=== PATIENT | female | born 1950 | race Caucasian/White ===

== ENCOUNTER 2019-03-26 08:21 | Inpatient (IN) | payer OTHER, SELFPAY ==
[2019-03-18 12:48] VITALS: BMI 38.7
[2019-03-26] VITALS (13 sets, daily range): BP systolic 119–174; BP diastolic 50–84; PULSE 49–69; RESP 12–18; TEMP 35.8–36.6; O2SAT 96–100; BMI 38.1
--- NOTE | 2019-03-26 06:00 | DI.RAD.S_ITS ---
PROCEDURE: XR KNEE LT 1TO2V INDICATIONS: LEFT TOTAL KNEE TECHNIQUE: 2 view(s) of the knee acquired. COMPARISON: None. FINDINGS: Bones: Patient is status post knee joint arthroplasty. Hardware components are in expected positions. Visualized bony structures are intact. Soft tissues: Overlying postoperative changes are noted. IMPRESSION: Normal alignment after left total knee arthroplasty. Dictated by: Estrada Burks M.D. on 03/26/2019 at 12:55 Approved by: Estrada Burks M.D. on 03/26/2019 at 12:56
--- NOTE | 2019-03-26 08:48 | PM.PREOP ---
Pre-operative Note Interval Note History & Physical reviewed/Exam performed by Physician: Yes Changes to H&P: No
--- NOTE | 2019-03-26 08:49 | PM.OP.1 ---
Operative Date/Time/Diagnoses Date of procedure: 03/26/19 Time of procedure: 11:47 Pre-op diagnosis: Left knee osteoarthritis Post-op diagnosis: same Procedure & Clinicians Procedure: Left total knee arthroplasty Same procedure as scheduled: Yes Indications: The patient presents today for total knee arthroplasty after failure of conservative treatment. The nature of the procedure including the risks and benefits, alternatives, postoperative course and expected outcome were discussed and all questions answered. Consent was obtained. Operative site confirmed and marked. Surgeon: Rolando Lama Surveillance Supervisor: Orville Garcias Anesthesia Type: General, Spinal and Local Operative Notes Findings: Severe osteoarthritis with varus alignment. Closure Type: primary Specimen(s): none sent Prosthetic devices, grafts, tissues, transplants, or devices: [facility] BCS: 5 femoral component, 3 tibial component, 9 mm BCS polyethylene tray and 29 x 7.5 mm round patella Applied: implant(s) Estimated Blood Loss (mL): 75 Blood products transfused: none Tourniquet time (min): 27 Procedure in detail: The patient was taken to the operative suite and placed under general and spinal anesthesia. The patient was given prophylactic antibiotics prior to surgery. The patient was also given tranexamic acid, 1 g, just prior to surgery for postoperative hemostasis. The lateral knee was prepped and the joint injected with 20 mL of 1% Lidocaine with epinephrine. The knee was then prepped and draped in usual sterile fashion. The leg was exsanguinated with an Esmarch dressing and the tourniquet raised to 250 torr. A 15 cm anterior incision was made. Next a medial trivector arthrotomy was made. The extensor mechanism was marked to ensure accurate repair. Initial exposing dissection was carried out medially and laterally. The knee was then extended and the patellar thickness was measured and a cut made removing approximately 7 mm of bone with a goal of restoring normal patellar thickness. The patella was then sized and drilled. Some excess lateral bone was excised and the patellofemoral ligament released. The tourniquet was then released. The knee was then flexed and the [employer] femoral guide was placed. The anterior pins were placed and the distal rotation holes drilled. The distal cutting guide was placed and the templated distal femoral cut was made. The templating cutting block was then placed and the anterior, posterior and chamfer cuts made. The [employer] tibial guide was placed and the alignment checked along the axis of the proximal tibial with a nancy. The proximal tibial cut was then made with an oscillating saw. All meniscus and bony debris was then removed. Flexion extension gaps were checked. No specific balancing was required other than routine exposure and removal of osteophytes. The soft tissues were then injected with a combination of 20 mL of half percent Marcaine with epinephrine and 20 mL of Exparel. The trial components were then placed. The knee went into full extension and flexion beyond 120?. There was excellent medial- lateral balance throughout motion. Patellar tracking was excellent. The trial components were removed and size is confirmed for the final implants. The knee was then exsanguinated with an Esmarch dressing and the tourniquet reapplied for cementing. The knee was cleansed with Pulsavac irrigation and dried. The final components were cemented in with high viscosity vacuum mixed bone cement with antibiotics. The knee was held in extension and the patellar clamp until the cement had adequately cured. The knee was then irrigated with dilute Betadine solution. The extensor mechanism was closed with 5 interrupted #1 Vicryl sutures in 90 degrees of flexion. The joint was then injected with a combination of 1 g of tranexamic acid and 20 mL of quarter percent Marcaine with epinephrine. The subcutaneous tissue was closed with 2-0 Vicryl. The skin was closed with sangita and surgical adhesive. An Aquacel dressing and Kamar wrap were then applied. Complications: none Condition: stable Disposition: PACU Plan for aftercare: [facility] protocol for total knee arthroplasty.
[2019-03-26] MEDS: LACTATED RINGERS 1,000 ML 42 ML IV ×2 (08:51→11:52)
[2019-03-26] MEDS: CEFAZOLIN 2 GM/100 ML FROZ.PIGGY IV ×2 (10:05→17:05)
--- NOTE | 2019-03-26 10:50 | SUR.OPER ---
Supine on padded OR bed. Pillow under head, arms secured on padded armboards <90 degree abduction. Safety belt across torso. Non-operative leg secured with tape over blanket over lower leg. Operative leg secured in DeMayo/Stiven positioner. Foam padded brace at thigh of operative leg.
[2019-03-26] MEDS: BUPIVACAINE 0.25% W/ EPI (PF) 40 ML, BUPIVACAINE LIPOSOME 266 MG, SODIUM CHLORIDE 0.9% ... INJ (10:56)
[2019-03-26] MEDS: LIDOCAINE 1% W/EPI INJ 20 ML INJ (10:56)
[2019-03-26] MEDS: TRANEXAMIC ACID 1,000 MG VIAL 1000 MG INJ ×2 (10:57→10:58)
[2019-03-26] MEDS: BUPIVACAINE 0.25% W/ EPI 30 ML VIAL INJ (11:00)
[2019-03-26] MEDS: POVIDONE-IODINE 15 ML, SODIUM CHLORIDE 0.9% 250 ML TOP (11:01)
[2019-03-26] MEDS: LACTATED RINGERS 1,000 ML 125 ML IV ×2 (13:00→21:56)
[2019-03-26] MEDS: OXYCODONE IR 5 MG TABLET PO (13:59)
[2019-03-26] MEDS: CHLORTHALIDONE 25 MG TABLET PO (14:01)
[2019-03-26] MEDS: ACETAMINOPHEN 325 MG TABLET 975 MG PO ×2 (14:02→20:31)
--- NOTE | 2019-03-26 14:45 | PT.IIE ---
Current Diagnoses Unilateral primary osteoarthritis, left knee (03/26/19) Surgery Performed Operation Date: 03/26/19 10:30 Actual Procedures p Total Knee Arthroplasty(Left) - Rolando Lama MD Surgical History (Last Updated 03/18/19 @ 13:14 by Jesenia Iglesias RN) History of lumbar fusion (Acute ~2014) History of right oophorectomy (Acute) Hx of laparoscopy (Acute) Medical History (Last Updated 03/18/19 @ 13:14 by Jesenia Iglesias RN) Anxiety about health (Acute) Bronchitis (Acute) Fluid retention in legs (Acute) H/O: hysterectomy (Acute) HTN (hypertension) (Acute) Hx of ectopic (Acute) Kidney stones (Acute) PAC (premature atrial contraction) (Acute) Wrist fracture, left (Acute) Physical Therapy Inpatient Evaluation/Re-Eval M1 PT/OT-IP Prior Functional Status Start: 03/26/19 16:52 Freq: NEEDED Status: Active Protocol: Document 03/26/19 14:45 AB (Rec: 03/26/19 17:04 AB [id number]) Medical Review Prior Functional Status Medical History Reviewed Yes Communication able to make needs known Mobility and Gait pt stated that she is independent with all mobilities and ambulation without AD Social History Household Members spouse Living Arrangements House Number of Floors (Floors) Two Floors Number of Stairs To Enter/Railing? pt stays on main level of the house 5 steps to enter with L rail ascending Home Environment High Toilet Walk in Shower Built-In Shower Seat Home Equipment Front Wheel Walker Straight Cane Employment Status Retired M2 PT-IP Current Condition Start: 03/26/19 16:52 Freq: NEEDED Status: Active Protocol: Document 03/26/19 14:45 AB (Rec: 03/26/19 17:04 AB [id number]) Physical Therapy Current Condition Current Condition Evaluation Date 03/26/19 Treatment Diagnosis s/p L TKA; difficulty in walking Onset Date 03/26/19 Weight Bearing Status Weight Bearing Status Weight Bear as Tolerated M3 PT-IP Subjective Start: 03/26/19 16:52 Freq: NEEDED Status: Active Protocol: Document 03/26/19 14:45 AB (Rec: 03/26/19 17:04 AB [id number]) Subjective Physical Therapy Visit Type Type Initial Evaluation Visit Start Time 14:45 Visit Stop Time 15:28 Total Visit Minutes 43 Number of RADIO INTERFERENCE EXPERT Visits 0 Physical Therapy Visit Comments Patient Comments pt requested to use the toilet Patient Goals to go home Therapy Pain Assessment Pain When Pain Assessed At Rest Pain Present Pain Present Pain Reported Location left knee Intensity 4 Scale Used Numeric (1 - 10) Pain Management Techniques Apply Cold Re-positioning Timing of Activity with Medications M4 PT-IP Mobility and Gait Start: 03/26/19 16:52 Freq: NEEDED Status: Active Protocol: Document 03/26/19 14:45 AB (Rec: 03/26/19 17:04 AB [id number]) PT-Bed Mobility Assessment Supine to Sit Supine to Sit Standby Assistance PT-Transfer Assessment Sit to and From Stand Sit to and from Stand Contact Guard Assistance Equipment Transfer Assistive Device Gait Belt Front Wheeled Walker Transfers Transfer Destination Toilet Transfer Technique pt ambulated to the toilet Transfer Ability Level of Assist Minimal Assistance Comments Mobility Comments (+) L knee buckling x2 during ambulation using FWW requiring min A for stability and safety. pt completed sit to stand from EOB CGA and ambulated to the toilet using FWW min A and cues. pt required min A for controlled descent to the toilet. pt was able to maintain standing using FWW for support while completing hygiene care and brief management. pt ambulated out of the toilet to the sink using FWW min A. pt was able to maintain standing using FWW for support CGA while completing handwashing. pt agreed to sit up on chair afterwards. set pt up on chair. ice pack provided. call light and table placed within reach. Gait Assessment Gait Gait Assistance Required: Contact Guard Assist Minimum Assistance Distance (Feet) 12 Able to Maintain Weight Bearing Status Yes During Gait Assistive Devices Assistive Device Gait Belt Front Wheeled Walker Orthotic/Prosthetic Devices or Brace: No Gait Deviations General Gait Pattern Antalgic Decreased Stride Length Decreased Feet Clearance Factors Limiting Gait Function Factors Limiting Gait Function Decreased Activity Tolerance Decreased Strength Limited Range of Motion Pain Poor Balance Poor Safety Awareness Comments Gait Comments pls refer to mobility comments for details PT-Balance Assessment Sitting Balance and Reactions Static Sitting Balance Ability Good Dynamic Sitting Balance Ability Good Standing Balance and Reactions Static Standing Balance Ability Fair Dynamic Standing Balance Ability Fair Device Used FWW M5 PT-IP Objective Assessments Start: 03/26/19 16:52 Freq: NEEDED Status: Active Protocol: Document 03/26/19 14:45 AB (Rec: 03/26/19 17:04 AB [id number]) Orientation Orientation/Cognition Level of Alertness Alert Orientation Name Age Birthday Month Date Year Day of Week Place Situation Safety Awareness Understands Safety Issues Memory Description No Deficits Noted Gross Range of Motion Lower Extremity ROM Assessment Left Impaired Impairments L knee flexion: ~ 50 deg Strength Lower Extremity Strength Assessment Left Impaired Hip 4-/5 Knee 3+/5 Coordination Assessment Gross Coordination Gross Coordination WNL Muscle Tone Muscle Tone WNL Yes M6 PT-IP Treatment Start: 03/26/19 16:52 Freq: NEEDED Status: Active Protocol: Document 03/26/19 14:45 AB (Rec: 03/26/19 17:04 AB [id number]) Physical Therapy Treatment Exercises Exercises Heel Slides Education Education Provided Precautions Weight Bearing Status Post-Op Packet Safety M7 PT-IP Assessment and Plan Start: 03/26/19 16:52 Freq: NEEDED Status: Active Protocol: Document 03/26/19 14:45 AB (Rec: 03/26/19 17:04 [id number]) PT Summary Assessment and Plan Potential Rehabilitation Potential Good Status of Condition at Evaluation Stable Summary Impairments Pain ROM Strength Balance Coordination Sensation Tone Cognition Bed Mobility Transfers Gait Activity Tolerance Assessment Summary pt requiring CGA to min A with mobility and will have her spouse assist her at home. caregiver training will be conducted when appropriate and will also complete stair training prior to d/c. pt stated that she is set up for outpt PT already. Goals Bed Mobility Goal Independent Transfer Goal Independent Front Wheeled Walker Gait Goal Independent Front Wheel Walker Gait Distance 200 Other Goals up/down 5 steps L rail ascending CGA Days to Meet Goals 5 Frequency of Treatment Frequency Of Treatment Twice a Day Treatment Plan Physical Therapy Treatment Plan Bed Mobility Training Transfer Training Gait Training Therapeutic Exercise Balance Retraining Post Op Education Discharge Planning Hot or Cold Pack Neuromuscular Re-ed Coordination Retraining Manual Therapy Recommendations To Nursing Amount of Assist Needed 1 Person Assist Discharge Recommendations PT Discharge Recommendations Home with Assistance Outpatient PT
[2019-03-26] MEDS: HYDROMORPHONE 0.5 MG INJ IV ×2 (15:54→18:34)
[2019-03-26] MEDS: OXYCODONE IR 10 MG TABLET PO ×3 (17:05→22:56)
[2019-03-26] MEDS: METOPROLOL IR 50 MG TABLET PO (20:29)
[2019-03-26] MEDS: ASPIRIN EC 81 MG TABLET PO (20:31)
[2019-03-27] MEDS: CEFAZOLIN 2 GM/100 ML FROZ.PIGGY IV (01:49)
[2019-03-27] MEDS: OXYCODONE IR 10 MG TABLET PO ×2 (01:51→11:47)
[2019-03-27 03:56] VITALS: BP 160/78; PULSE 73; RESP 16; TEMP 36.7; O2SAT 97
[2019-03-27] MEDS: OXYCODONE IR 5 MG TABLET PO ×3 (05:51→08:55)
--- NOTE | 2019-03-27 07:26 | PM.DS.1 ---
History of Present Illness Date Patient Seen: 03/27/19 Time Patient Seen: 07:27 Chief complaint: [id number] Left Total Knee ArthroplastyNEED MCR NUM Narrative: Pain is been to 7/10. Some nausea when she has been up to use the restroom. No vomiting. No fever chills. Patient wishes to go home today if safe to do so. Discharge Providers Date of admission: 03/26/19 08:21 Discharge Date: 03/27/19 Primary care physician: Shayna Taveras PA-C Consults: 03/26/19 12:46 Consult to Discharge Planning Routine Comment: Consult to Physical Therapy Evaluate & Treat Comment: Physician Instructions: postop TKA protocol Consult to Respiratory Therapy Evaluate & Treat Comment: Physician Instructions: Evaluate and treat Discharge provider: Orville Garcias PA-C Summary Discharge Diagnosis: Post left total knee arthroplasty Hospital Course: Indications: The patient presents today for total knee arthroplasty after failure of conservative treatment. The nature of the procedure including the risks and benefits, alternatives, postoperative course and expected outcome were discussed and all questions answered. Consent was obtained. Operative site confirmed and marked. Surgeon: Rolando Lama [place] Hand: Orville Garcias Anesthesia Type: General, Spinal and Local Operative Notes Findings: Severe osteoarthritis with varus alignment. Closure Type: primary Specimen(s): none sent Prosthetic devices, grafts, tissues, transplants, or devices: [employer] BCS: 5 femoral component, 3 tibial component, 9 mm BCS polyethylene tray and 29 x 7.5 mm round patella Applied: implant(s) Estimated Blood Loss (mL): 75 Blood products transfused: none Tourniquet time (min): 27 Patient admitted for the above-mentioned procedure. Patient consented for the same. Patient taken operating for left total knee arthroplasty. Patient doing well after surgery. Mobilizing back and forth to the bathroom. She has had some nausea no vomiting. Pain is well controlled. Patient's his home to assist her and she wishes to go home today if safe to do so. Status at Discharge Cognitive/behavioral status at discharge: oriented and at baseline, oriented Functional status at discharge: uses cane/walker Overall status at discharge: patient is progressing back to baseline Time Spent with Patient Less than 30 minutes Exam Vital Signs (past 8 hours): - 03/26/19 23:30 03/27/19 03:56 Temperature 97.6 F 98.1 F Pulse Rate 69 73 Respiratory Rate 17 16 Blood Pressure 148/79 H 160/78 H Pulse Oximetry 96 97 Fraction of Inspired Oxygen 21 Oxygen Delivery Method Room Air Oxygen Flow Rate 0 Narrative Exam Narrative: Pleasant 69-year-old female resting comfortably in bed in no apparent distress. Rangel dressing is on and functioning. Dressing is clean, dry and intact. Left leg is warm and dry. Motor functions intact distally. Discharge Plan Discharge Plan Patient Disposition: Home Discharge comment: DC home today after PT Discharge Med Rec/Prescriptions Prescriptions: Continued chlorthalidone 25 mg Tablet 25 mg PO DAILY RF: 0 metoprolol tartrate 50 mg Tablet 50 mg PO BID RF: 0 esomeprazole magnesium [Nexium] 20 mg Capsule,Delayed Release(Dr/Ec) 1 tab PO DAILY PRN (Reason: GI upset) RF: 0 [id number]-herbal no.245 1 tab PO DAILY RF: 0 Discontinued aspirin 81 mg Tablet,Delayed Release (Dr/Ec) 81 mg PO DAILY RF: 0 Follow up/Referrals: Rolando Lama MD [Physician] - (follow up 1 wk) Shayna Taveras PA-C [Primary Care Provider] - Provider Discharge Instructions Diet: Diet as Tolerated Activity: per [facility] Cold/Heat Therapy: per [facility] Other treatments: Aspirin 81 mg b.i.d., Tylenol 1000 mg q.8 hours, Mobic 1 daily, Vistaril as needed nausea and muscle spasms, oxycodone as needed pain Skin/Wound/Dressing Care Report to your healthcare provider any signs of infection, such as:: chills, fever, increased pain, unusual drainage and unusual redness Dressing: keep clean and dry Discharge Data Primary Care Provider: Shayna Taveras I Attending Provider: Rolando Lama Admit Date/Time: 03/26/19 08:21
--- NOTE | 2019-03-27 07:30 | P.DS_ITS ---
History of Present Illness Date Patient Seen: 03/27/19 Time Patient Seen: 07:27 Chief complaint: [id number] Left Total Knee ArthroplastyNEED MCR NUM Narrative: Pain is been to 7/10. Some nausea when she has been up to use the restroom. No vomiting. No fever chills. Patient wishes to go home today if safe to do so. Discharge Providers Date of admission: 03/26/19 08:21 Discharge Date: 03/27/19 Primary care physician: Shayna Taveras PA-C Consults: 03/26/19 12:46 Consult to Discharge Planning Routine Comment: Consult to Physical Therapy Evaluate & Treat Comment: Physician Instructions: postop TKA protocol Consult to Respiratory Therapy Evaluate & Treat Comment: Physician Instructions: Evaluate and treat Discharge provider: Orville Garcias PA-C Summary Discharge Diagnosis: Post left total knee arthroplasty Hospital Course: Indications: The patient presents today for total knee arthrop lasty after failure of conservative treatment. The nature of the procedure including the risks and benefits, alternatives, postoperative course and expected outcome were discussed and all questions answered. Consent was obtained. Operative site confirmed and marked. Surgeon: Rolando Lama Director Of Accounts Payable: Orville Garcias Anesthesia Type: General, Spinal and Local Operative Notes Findings: Severe osteoarthritis with varus alignment. Closure Type: primary Specimen(s): none sent Prosthetic devices, grafts, tissues, transplants, or devices: [employer] BCS: 5 femoral component, 3 tibial component, 9 mm BCS polyethylene tray and 29 x 7.5 mm round patella Applied: implant(s) Estimated Blood Loss (mL): 75 Blood products transfused: none Tourniquet time (min): 27 Patient admitted for the above-mentioned procedure. Patient consented for the same. Patient taken operating for left total knee arthroplasty. Patient doing well after surgery. Mobilizing back and forth to the bathroom. She has had some nausea no vomiting. Pain is well controlled. Patient's his home to assist her and she wishes to go home today if safe to do so. Status at Discharge Cognitive/behavioral status at discharge: oriented and at baseline, oriented Functional status at discharge: uses cane/walker Overall status at discharge: patient is progressing back to baseline Time Spent with Patient Less than 30 minutes Exam Vital Signs (past 8 hours): - 03/26/19 23:30 06/06/19 03:56 Temperature 97.6 F 98.1 F Pulse Rate 69 73 Respiratory Rate 17 16 Blood Pressure 148/79 H 160/78 H Pulse Oximetry 96 97 Fraction of Inspired Oxygen 21 Oxygen Delivery Method Room Air Oxygen Flow Rate 0 Narrative Exam Narrative: Pleasant 69-year-old female resting comfortably in bed in no apparent distress. Rangel dressing is on and functioning. Dressing is clean, dry and intact. Left leg is warm and dry. Motor functions intact distally. Discharge Plan Discharge Plan Patient Disposition: Home Discharge comment: DC home today after PT Discharge Med Rec/Prescriptions Prescriptions: Continued chlorthalidone 25 mg Tablet 25 mg PO DAILY RF: 0 metoprolol tartrate 50 mg Tablet 50 mg PO BID RF: 0 esomeprazole magnesium [Nexium] 20 mg Capsule,Delayed Release(Dr/Ec) 1 tab PO DAILY PRN (Reason: GI upset) RF: 0 [id number]-herbal no.245 1 tab PO DAILY RF: 0 Discontinued aspirin 81 mg Tablet,Delayed Release (Dr/Ec) 81 mg PO DAILY RF: 0 Follow up/Referrals: Rolando Lama MD [Physician] - (follow up 1 wk) Shayna Taveras PA-C [Primary Care Provider] - Provider Discharge Instructions Diet: Diet as Tolerated Activity: per [facility] Cold/Heat Therapy: per [facility] Other treatments: Aspirin 81 mg b.i.d., Tylenol 1000 mg q.8 hours, Mobic 1 daily, Vistaril as needed nausea and muscle spasms, oxycodone as needed pain Skin/Wound/Dressing Care Report to your healthcare provider any signs of infection, such as:: chills, fever, increased pain, unusual drainage and unusual redness Dressing: keep clean and dry Discharge Data Primary Care Provider: Shayna Taveras I Attending Provider: Rolando Lama Admit Date/Time: 03/26/19 08:21
[2019-03-27] MEDS: CHLORTHALIDONE 25 MG TABLET PO (07:59)
[2019-03-27 08:00] VITALS: BP 142/69; PULSE 59; RESP 16; TEMP 36.8; O2SAT 97
[2019-03-27] MEDS: ACETAMINOPHEN 325 MG TABLET 975 MG PO (08:00)
[2019-03-27] MEDS: MELOXICAM 7.5 MG TABLET 15 MG PO (08:00)
[2019-03-27] MEDS: PANTOPRAZOLE 20 MG TABLET PO (08:01)
[2019-03-27] MEDS: METOPROLOL IR 50 MG TABLET PO (08:01)
[2019-03-27] MEDS: ASPIRIN EC 81 MG TABLET PO (08:08)
--- NOTE | 2019-03-27 08:29 | CM.IDA ---
Initial DCP Assessment Note: Pt is a 69 yo female, resident of [place], now POD#1 from Lft knee surgery w/ Dr Lama . PCP: Shayna Taveras Payer: Jim HOANG Reviewed chart. Therapy has cleared pt for return home w/family to assist and pt has planned for home, DC order from [facility] has already been initiated this morning. No needs expected from DC planning team although will remain available in case this changes today. ALEXUS Regan Discharge Planning/Care Management CM Discharge Assessment Start: 03/27/19 08:26 Freq: Status: Active Protocol: Document 03/27/19 08:26 TOM (Rec: 03/27/19 08:28 [id number]) Discharge Planning Assessment Assigned Clear Coat Sprayer ALEXUS Fairchild DPOA/Assigned Designee Name Dex Esquivel, spouse Contact Information [phone] Advance Directives? Yes Advance Directives on File No History Provided By Patient Significant Other Medical Record Prior Living Arrangements House Household Members spouse Type of transporation used prior to Drives own vehicle admit Independent with ADL's Yes Is patient alert and oriented? Yes Barriers to Discharge No Discharge Plan Home Transportation Arrangement Family Referrals Initiated None needed Review Status In Process
[2019-03-27 09:11] LABS: Hematocrit 33.3 % (36-46); Hemoglobin 11.1 g/dL (12.0-16.0)
[2019-03-27] MEDS: ONDANSETRON 4 MG ODT PO (09:54)
--- NOTE | 2019-03-27 10:52 | PT.IPTN ---
Current Diagnoses Unilateral primary osteoarthritis, left knee (03/26/19) Surgery Performed Operation Date: 03/26/19 10:30 Actual Procedures p Total Knee Arthroplasty(Left) - Rolando Lama MD Physical Therapy Treatment Note M2 PT-IP Current Condition Start: 03/26/19 16:52 Freq: NEEDED Status: Active Protocol: Document 03/26/19 14:45 AB (Rec: 03/26/19 17:04 AB [id number]) Physical Therapy Current Condition Current Condition Evaluation Date 03/26/19 Treatment Diagnosis s/p L TKA; difficulty in walking Onset Date 03/26/19 Weight Bearing Status Weight Bearing Status Weight Bear as Tolerated M3 PT-IP Subjective Start: 03/26/19 16:52 Freq: NEEDED Status: Active Protocol: Document 03/27/19 10:37 SA (Rec: 03/27/19 10:52 SA [id number]) Subjective Physical Therapy Visit Type Type Treatment Note Visit Start Time 09:46 Visit Stop Time 10:18 Total Visit Minutes 32 Number of MEDICAL DIR Visits 1 Physical Therapy Visit Comments Patient Comments Pt reports feeling beter today , ready to try stairs. Patient Goals To go home with and dog. Therapy Pain Assessment Pain When Pain Assessed During Mobility Pain Present Pain Present Pain Reported Location left knee Intensity 3 Scale Used Numeric (1 - 10) Pain Management Techniques Apply Cold Re-positioning Timing of Activity with Medications M4 PT-IP Mobility and Gait Start: 03/26/19 16:52 Freq: NEEDED Status: Active Protocol: Document 03/27/19 10:37 SA (Rec: 03/27/19 10:52 SA [id number]) PT-Bed Mobility Assessment Rolling Type of Rolling Roll to Left Level of Assist Standby Assistance Supine to Sit Supine to Sit Standby Assistance Sit to Supine Sit to Supine Standby Assistance Scooting Scooting to Edge of Bed Standby Assistance Scooting Up and Down in Bed Standby Assistance PT-Transfer Assessment Sit to and From Stand Sit to and from Stand Standby Assistance Contact Guard Assistance 1 Person Assistance Equipment Transfer Assistive Device Gait Belt Front Wheeled Walker Transfers Transfer Destination Bed Chair Wheelchair Transfer Technique Stand Pivot Transfer Ability Level of Assist Standby Assistance Contact Guard Assistance Comments Mobility Comments PT SBA-CGA with bed mobility and transfers, uses FWW safely and had no knee buckling. Sit to stands from various surfaces with SBA. present for caregiver training this session. Gait Assessment Gait Gait Assistance Required: Standby Assistance Contact Guard Assist Distance (Feet) 100 Able to Maintain Weight Bearing Status Yes During Gait Assistive Devices Assistive Device Gait Belt Front Wheeled Walker Orthotic/Prosthetic Devices or Brace: No Gait Deviations General Gait Pattern Antalgic Decreased Stride Length Decreased Feet Clearance Factors Limiting Gait Function Factors Limiting Gait Function Decreased Activity Tolerance Decreased Strength Limited Range of Motion Pain Comments Gait Comments Improved gait distance and quality, able to increase step length and LLE WBing with cues, pt had no c/o dizziness or nausea and no knee buckling . Stair Climbing Assessment Evaluation Level of Assist On Stairs Contact Guard Assistance 1 Person Assistance Devices Stair Climbing Assistive Devices Left Railing Technique/Endurance Stair Climbing Direction Ascend and Descend Stair Climbing Technique Step to Step Number of Steps Climbed 3 Query Text: Stair Climbing Set # Repetitions (reps) 2 Comments Stair Climbing Comments Pt with CGA, step to gait pattern and use of single rail , completed on rep with me and another with her Dex, caregiver training completed and both feel confident they can manage stairs at home. PT-Balance Assessment Sitting Balance and Reactions Static Sitting Balance Ability Good Dynamic Sitting Balance Ability Good M5 PT-IP Objective Assessments Start: 03/26/19 16:52 Freq: NEEDED Status: Active Protocol: Document 03/26/19 14:45 AB (Rec: 03/26/19 17:04 AB [id number]) Orientation Orientation/Cognition Level of Alertness Alert Orientation Name Age Birthday Month Date Year Day of Week Place Situation Safety Awareness Understands Safety Issues Memory Description No Deficits Noted Gross Range of Motion Lower Extremity ROM Assessment Left Impaired Impairments L knee flexion: ~ 50 deg Strength Lower Extremity Strength Assessment Left Impaired Hip 4-/5 Knee 3+/5 Coordination Assessment Gross Coordination Gross Coordination WNL Muscle Tone Muscle Tone WNL Yes M6 PT-IP Treatment Start: 03/26/19 16:52 Freq: NEEDED Status: Active Protocol: Document 03/27/19 10:37 SA (Rec: 03/27/19 10:52 SA [id number]) Physical Therapy Treatment Exercises Exercises Ankle Pumps Gluteal Sets Quad Sets Heel Slides Short Arc Quads Passive Knee Extension Hang Seated Knee Flexion/Extension Education Education Provided Precautions Weight Bearing Status Post-Op Packet Safety M7 PT-IP Assessment and Plan Start: 03/26/19 16:52 Freq: NEEDED Status: Active Protocol: Document 03/27/19 10:37 SA (Rec: 03/27/19 10:52 SA [id number]) PT Summary Assessment and Plan Potential Rehabilitation Potential Good Status of Condition at Evaluation Stable Summary Assessment Summary Pt with present for caregiver training, able to manage gait and stairs safely and SBA with most mobility tasks. Pt has FWW, shower chair and elevated toilet at home and home and available to assist. Ready for d/c this afternoon. OP PT set up next week. Goals Days to Meet Goals 5 Frequency of Treatment Frequency Of Treatment Twice a Day Treatment Plan Physical Therapy Treatment Plan Bed Mobility Training Transfer Training Gait Training Therapeutic Exercise Balance Retraining Post Op Education Discharge Planning Hot or Cold Pack Neuromuscular Re-ed Coordination Retraining Manual Therapy Recommendations To Nursing Amount of Assist Needed 1 Person Assist Discharge Recommendations PT Discharge Recommendations Home with Assistance Outpatient PT
--- NOTE | 2019-03-27 11:14 | PC.NURSE ---
Day shift: Pt in good spirits today as she will be going home after lunch. Passed PT?OT
--- NOTE | 2019-03-27 11:15 | PC.NURSE ---
Day shift: Pt to d/c after lunch today. Spouse was here for the stairs. 10mg PO Oxycodone is working well for pain. VS WNL. RA mid 90's. Uses KYLEIGH. Klaus Pt so she already has MD stewart. Printed info and gave to Pt stool softner info. CMS ok. PPP. Kamar wrap with WENDY CDI. Pt tolerating ice pack and using I.S. as directed. Will medicate for pain and car ride home today at approx 1200.
--- NOTE | 2019-03-27 12:54 | PC.NURSE ---
Day shift: Pt left unit at approx 1300 with [employer] to private car driven by Pt's spouse. Paperwork signed and all questions answered. Pt has all personal belongings. Had MD scrips already b/c Klaus.
== END 2019-03-27 12:55 | disposition home or self-care (01) | DRG 470 ==
PROVIDERS: Admitting Provider Orthopaedic Surgery; PCP Physician Assistant; Visit Provider Orthopaedic Surgery
PROC: 0SRD0JZ Replacement of Left Knee Joint with Synthetic Substitute, Open Approach (ICD-10-PCS; CPT 27447; principal; 2019-03-26 10:30)
DX: M17.12 Unilateral primary osteoarthritis, left knee (principal); I10 Essential (primary) hypertension; K21.9 Gastro-esophageal reflux disease without esophagitis
CPT/HCPCS: 36415; 73560; 85014; 85018; 94760; 94762; 97116; 97161; 97530; C1776; C9290; J0690; J1100; J1170; J2250; J2405; J2704; J3010